=== PATIENT | female | born 1965 | race Hispanic/Latino ===

== ENCOUNTER 2017-06-30 15:41 | Emergency (ER) | payer MEDICAID ==
[2017-06-30 15:44] VITALS: BMI 51.8
[2017-06-30 15:48] VITALS: BP 121/79; PULSE 70; RESP 18; TEMP 98.3; O2SAT 98
[2017-06-30] MEDS ORDERED: Sodium Chloride 0.9% 1,000 ML IV ONE (16:41)
--- NOTE | 2017-06-30 16:44 | C.PDOC ---
History Of Present Illness 51 year old female, history of diabetes, HTN, HLD, ulcers, renal cancer, and is status post appendectomy, cholecystectomy, and multiple hernia repairs, presents to the ED for evaluation of right upper quadrant pain which began at 01 :00 this morning. She describes pain as sharp, constant, and radiating to her back. She reports watery diarrhea and 4 episodes of vomiting. She denies fever, chills, dysuria, or hematuria. She denies having had similar pain in the past. Time Seen by Provider: 06/30/17 16:32 Chief Complaint (Nursing): Abdominal Pain History Per: Patient, Other (daughter acting as Bulgarian ash collector per patient's request) History/Exam Limitations: no limitations Onset/Duration Of Symptoms: Hrs Current Symptoms Are (Timing): Still Present Location Of Pain/Discomfort: RUQ Radiation Of Pain To:: Back Quality Of Discomfort: Sharp Associated Symptoms: Vomiting, Diarrhea. denies: Fever, Chills Past Medical History Reviewed: Historical Data, Nursing Documentation, Vital Signs Vital Signs: Last Vital Signs Temp 98.3 F 06/30/17 15:44 Pulse 70 06/30/17 15:44 Resp 18 06/30/17 15:44 BP 121/79 06/30/17 15:44 Pulse Ox 98 06/30/17 16:49 - Medical History PMH: Diabetes, Gastrointestinal Ulcer, Hiatal Hernia, HTN, Hypercholesterolemia , Malignancy ("KIDNEY CANCER"), Obstructive Bowel (SBO), Chronic Kidney Disease (Stage 2) Surgical History: Appendectomy, Cholecystectomy, Hernia Repair - [facility] Procedures DESTRUCT PERITONEAL TISS (08/30/13) DRAINAGE OF PERITONEAL CAVITY, OPEN APPROACH (11/19/16) IMMOBILIZ/WOUND ATTN NEC (12/06/13) INJECT/INFUSE ELECTROLYT (03/05/14) INJECT/INFUSE NEC (12/30/14) MRI OF OTHER AND UNSPECIFIED SITES (08/07/14) OTHER OPEN INCISIONAL HERNIA REPAIR WITH GRAFT OR PROSTHESIS (08/30/13) RELEASE PERITONEUM, OPEN APPROACH (11/19/16) REPAIR ABDOMINAL WALL, OPEN APPROACH (11/19/16) TRANSFER ABDOMEN SKIN, EXTERNAL APPROACH (11/19/16) Family History: States: Unknown Family Hx - Social History Hx Tobacco Use: No Hx Alcohol Use: No Hx Substance Use: No - Immunization History Hx Tetanus Toxoid Vaccination: No Hx Influenza Vaccination: Yes Hx Pneumococcal Vaccination: No Review Of Systems Constitutional: Negative for: Fever, Chills Gastrointestinal: Positive for: Vomiting, Abdominal Pain, Diarrhea Genitourinary: Negative for: Dysuria, Hematuria Physical Exam - Physical Exam Appears: Non-toxic, No Acute Distress Skin: Normal Color, Warm, Dry Head: Atraumatic, Normacephalic Cardiovascular: Rhythm Regular, No Murmur Respiratory: Normal Breath Sounds Gastrointestinal/Abdominal: Soft, Tenderness (right upper and right lower quadrants), No Distention Back: No CVA Tenderness Extremity: No Pedal Edema, No Calf Tenderness Neurological/Psych: Oriented x3 ED Course And Treatment O2 Sat by Pulse Oximetry: 98 Medical Decision Making Medical Decision Making: Impression: 51 year old female with abdominal pain. Plan: -Basic blood work -Pain medication -CT scan Differential diagnosis includes renal colic, pancreatitis, bowel obstruction, infection, constipation, remnant gallstones. Patient no longer in ED Disposition - Disposition Disposition: ELOPEMENT - ER ONLY Disposition Time: 18:51 Condition: STABLE Forms: [facility] (Indonesian) - Clinical Impression Clinical Impression: Abdominal pain - Scribe Statement The provider has reviewed the documentation as recorded by the Elida Best Provider Attestation: All medical record entries made by the Martinaibe were at my direction and personally dictated by me. I have reviewed the chart and agree that the record accurately reflects my personal performance of the history, physical exam, medical decision making, and the department course for this patient. I have also personally directed, reviewed, and agree with the discharge instructions and disposition.
[2017-06-30 18:04] LABS: RBC URINE 6 /hpf (0-3); TRANSITIONAL EPITHIAL 1 /hpf (0-3); URINE BACTERIA FEW (<OCC); URINE BILIRUBIN NEGATIVE (NEGATIVE); URINE BLOOD 1+ (NEGATIVE); URINE COLOR Yellow (YELLOW); URINE GLUCOSE (UA) NORMAL (Normal); URINE KETONE NEGATIVE (NEGATIVE); URINE LEUKOCYTE ESTERASE 2+ Leu/uL (Negative); URINE PROTEIN 2+ mg/dL (NEGATIVE); URINE UROBILINOGEN NORMAL mg/dL (0.2-1.0); WBC URINE 31 /hpf (0-5)
== END 2017-06-30 17:45 | disposition left against medical advice (07) ==
LOC: C.ER 15:41
DX: R10.11 Right upper quadrant pain (principal); E11.9 Type 2 diabetes mellitus without complications; I10 Essential (primary) hypertension; E78.5 Hyperlipidemia, unspecified